=== PATIENT | male | born 1985 | race Hispanic/Latino ===

== ENCOUNTER 2023-12-05 20:27 | Emergency (ER) | payer BC, SELFPAY ==
[2023-12-05] VITALS (10 sets, daily range): BP systolic 146–168; BP diastolic 99–124; BMI 29.8
[2023-12-05 21:20] LABS: COVID-19 Antigen Negative (Negative)
[2023-12-05] MEDS: NORVASC 2.5 MG PO (22:00)
[2023-12-05 22:07] LABS: % Basophils 1.1 % (0-2); % Eosinophils 5.5 % (0-6); % Immature Granulocytes 1.3 % (0-0.5); % Monocytes 9.2 % (1.7-9.3); % Neutrophils 64.9 % (42.2-75.2); Absolute Basophils 0.1 10^3/uL (0-0.2); Absolute Eosinophils 0.6 10^3/uL (0-0.7); Absolute Immature Granulocytes 0.2 10^3/uL (0-0.05); Absolute Lymphocytes 2.1 10^3/uL (1.2-3.4); Absolute Monocytes 1.1 10^3/uL (0.1-0.6); Absolute Neutrophils 7.5 10^3/uL (1.4-6.5); Hematocrit 42.5 % (39.0-52.0); Hemoglobin 15.1 g/dL (13.0-18.0); Mean Corp Hgb Conc. 35.5 g/dL (33.0-37.0); Mean Corpuscular Hgb 28.7 pg (27.0-31.0); Mean Corpuscular Volume 80.8 fL (80.0-94.0); Mean Platelet Volume 10.8 fL (7.4-10.4); Nucleated Red Blood Cells % 0 % (-); Platelet Count 249 10^3/uL (130-400); Red Blood Cell Count 5.26 10^6/uL (4.70-6.10); Red Cell Dist. Width 12.5 % (11.5-14.5); White Blood Cell Count 11.5 10^3/uL (4.8-10.8)
[2023-12-05 22:34] LABS: ALT (SGPT) 38 U/L (0-50); AST (SGOT) 24 U/L (17-59); Albumin 4.8 g/dl (3.5-5.0); Alkaline Phosphatase 80 U/L (38-126); Blood Urea Nitrogen 19 mg/dl (9-20); Calcium 9.5 mg/dl (8.4-10.2); Carbon Dioxide 27 mmol/L (22-30); Chloride 100 mmol/L (98-107); Estimated Creatinine Clearance 121 ml/min; Glucose 95 mg/dl (70-99); Lipase 456 U/L (23-300); Sodium 139 mmol/L (135-145); Total Bilirubin 0.5 mg/dl (0.2-1.3); Total Protein 6.9 g/dl (6.3-8.2); eGFR > 60.00
[2023-12-05 22:47] LABS: NT-proBNP 53.1 pg/ml; Troponin I < 0.012 ng/ml
--- NOTE | 2023-12-06 00:07 | ED.GENMED ---
History of Present Illness
General
Chief Complaint: Cold/Flu/URI Symptoms
Source: patient
Exam Limitations: none
Time Seen by Provider: 12/05/23 20:33
Nursing documentation reviewed up to this point in time: agreed with
History of Present Illness
History of Present Illness:
38 Y/O M h/o htn
chronically not controlled
here with uri sxs - cough, dry mostly but sometimes productive, feels sob at times, nausea/vomiting x 5-6 today post tussive or spontaneous
chills
no cp, pleuritic pain, leg swelling, recent travel, abdominal pain, diarrhea
he has not tried OTC meds
has never had DVT PE
says his BP is always elevated but he doesn't tolerate a lot of meds because then BP drops
he doesn't know when he last took meds
Past History
Past History
ED Past Medical History: HTN, Psychiatric (Anxiety, panic disorder) and Other ( Chronic left chest pain)
ED Past Surgical History: Tonsilectomy
Patient has exhibited threatening behavior?: No
Social History
Tobacco: Non-smoker
Alcohol: None
Drug: None
Personal:
Living: with family
Employment: Employed
Family History
Family History: Other (Noncontributory)
Review of Systems
Review of Systems
Allergies reviewed?: Yes
All Other Systems: Not applicable
Phy Exam
Physical Exam
Physical Exam:
GENERAL: Alert , in no apparent distress, well appearing
EYE: pupils equal and reactive
NECK: Supple
ENT: o/p clr, mmm.
CARDIAC: Regular rate and rhythm .
LUNGS: Clear breath sounds bilaterally, no acute respiratory distress, no wheezes/rales/rhonchi
ABDOMEN: Soft, without focal tenderness, no r/g, no cvat, normal bowel sounds
NEUROLOGICAL: Alert and oriented, no focal neuro deficits
SKIN: Warm and dry, skin intact.
MUSCULOSKELETAL: No edema, well perfused. neg kanchan's sign
PSYCH: Normal and appropriate interaction.
Course
Orders/Labs/Results
Orders:
Orders
12/05/23 20:45
Electrocardiogram (*1) Urgent
Reason for Study: Shortness of Breath
EKG- Treatment ONCE
CR Chest - 2 Views Urgent
Comment:
Reason For Exam: cough
12/05/23 20:49
COVID-19 Antigen Urgent
Source: Nasal Swab
Influenza A+B Rapid Molecular Urgent
ANURAG Source: Nasal Swab
Specimen Description:
12/05/23 21:45
Amlodipine [Norvasc] 2.5 mg PO NOW STA
12/05/23 21:56
Complete Blood Count/With Diff Urgent
Comprehensive Metabolic Panel Urgent
Lipase Urgent
NT-proBNP Urgent
Troponin I Urgent
Abnormal Lab Results
12/05/23
21:56
WBC 11.5 H 10^3/uL
(4.8-10.8)
MPV 10.8 H fL
(7.4-10.4)
Abs Immat Gran (auto) 0.2 H 10^3/uL
(0-0.05)
Absolute Neuts (auto) 7.5 H 10^3/uL
(1.4-6.5)
Absolute Monos (auto) 1.1 H 10^3/uL
(0.1-0.6)
Immature Gran % 1.3 H %
(0-0.5)
Lymphocytes % 18.0 L %
(20.5-51.1)
Lipase 456 H U/L
(23-300)
12/05/23 21:56
12/05/23 21:56
Vital Signs
Initial and Last Documented VS:
Initial Vital Signs
Temp Pulse Resp BP Pulse Ox
99.0 F 95 18 168/99 97
12/05/23 20:29 12/05/23 20:29 12/05/23 20:29 12/05/23 20:29 12/05/23 20:29
Last Documented Vital Signs
Temp Pulse Resp BP Pulse Ox
99.0 F 86 16 146/110 97
12/05/23 20:29 12/05/23 23:54 12/05/23 23:54 12/05/23 23:58 12/05/23 23:54
MDM/Problems Addressed
Differential Diagnosis Includes:
uri, covid, flu, viral uri, pneumonia
less likely CHF, less likely PE
MDM/Problems Addressed:
38 y/o M
chronic anxiety, uncontrolled htn
here with uri sxs, nausea, vomiting for a few days and then also feels sob at times
he has no cp
no PE RF
chronically has elevated bp and is not on meds becuase he chooses not to be, hasn't tolerated them well
gets white coat sydnreom as well
PERC NEG
on exam normal pulse ox, not tachy, not tachypneic,
lungs clear
occ cough
sounds viral in nature
started with covid/flu/cxr/ekg
he does have chroinc t wave inv in III but unchanged
but then with bp elevated 150/120
i did w/u to eval cr/trop/bnp
all neg
his bp did come down slightly but on chart review, he has been chronially elevated this high
he agrees to start amlodpine 2.5 mg dialy
lipase 400; no alchol abuse, percy bdominal pain
reocmmend clears
return precautions
*Critical Care Note
Total Time (30-74mins, 75-104mins- exclusive of procedures): Not Applicable
ED Attending Note
-
Portions of this chart may have been created with voice recognition software.� Occasional wrong word or��sound alike� substitutions may have occurred due to the inherent limitations of voice recognition software.
Discharge Plan
Departure
Patient Disposition: Home (Routine Discharge)
Date of Disposition: 12/05/23
Time of Disposition: 23:42
Patient with high blood pressure during this ER visit?: No
Condition: Fair
Covid-19: Not Applicable
Discharge Problem:
Acute bronchitis, Hypertension complications
Instructions: Acute Bronchitis, Adult (DC), BLOOD PRESSURE
Prescriptions:
New
amlodipine 2.5 mg tablet
2.5 mg PO DAILY Qty: 30 0RF
Referrals:
Gamaliel Richmond MD [Family Provider] -
Activity Restrictions/Additional Instructions:
YOUR WORK UP HERE DOES NOT SHOW ANY SIGNS OF EMERGENCY
YOU HAVE HIGH BLOOD PRESSURE AND NEED TO START MEDICATION FOR NOW
AMLOIDPINE 2.5 MG DAILY
PLEASE BUY A CUFF AND RECHECK AT HOME
YOUR COUGH IS PROBABLY VIRAL
YOU TESTED NEGATIVE FOR FLUA ND COVID
THERE WAS NO SIGN OF HEART FAILURE
THERE WAS NO SIGN OF PNEUMONIA
PLEASE FOLLOW UP WITH YOUR DOCTOR THIS WEEK
YOU CAN TAKE OVER THE COUNTER CORICIDIN HBP FOR YOUR COLD SYPTOMS (THIS WILL NOT RAISE YOUR BLOOD PRESSURE)
DRINK FLUIDS, HAVE A CLEAR LIQUID DIET FOR 24 HOURS
YOUR PANCREAS ENZYME WS SLIGHTLY HIGH WHICH CAN BE BECAUSE OF THE VOMITING
RETURN FOR:WORSENING SHORTNESS OF BREATH, HIGH FEVER, CHEST PAIN, CONTINUED VOMITING, ABDOMNAL PAIN OR ANY CONCERNS.
Interventions
Interventions:
*Risk Screen - Suicide Last Done: 12/05/23 20:56
*General Assessment Last Done: 12/05/23 20:29
*Neglect/Abuse Screening Last Done: 12/05/23 20:56
*ED COVID-19 Vaccine History Last Done: 12/05/23 20:56
*Nursing Disposition Last Done: 12/06/23 00:08
ED- Pulmonary Assessment Last Done: 12/05/23 20:56
Discharge Date and Time
Discharge Date/Time: 12/06/23 00:08
Print Language: UKRAINIAN
== END 2023-12-06 00:08 | disposition home or self-care (01) ==
LOC: EMR 20:27
PROVIDERS: Physician Assistant; EMERGENCY PHYSICIAN Student in an Organized Health Care Education/Training Program; FAMILY PHYSICIAN Internal Medicine
DX: J20.9 Acute bronchitis, unspecified (principal); I10 Essential (primary) hypertension; R11.2 Nausea with vomiting, unspecified; Z11.52 Encounter for screening for COVID-19; F41.0 Panic disorder [episodic paroxysmal anxiety]; F41.9 Anxiety disorder, unspecified
CPT/HCPCS: 99283; 71046; 80053; 83690; 83880; 84484; 85025; 87502; 87811; 93005

== ENCOUNTER 2024-02-25 16:38 | Emergency (ER) | payer SELFPAY ==
[2024-02-25] VITALS (10 sets, daily range): BP systolic 147–185; BP diastolic 108–131; BMI 30.3
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
[2024-02-25] MEDS: TRANDATE 10 MG IV (20:36)
[2024-02-25 20:37] LABS: % Basophils 0.7 % (0-2); % Eosinophils 2.5 % (0-6); % Lymphocytes 32.8 % (20.5-51.1); % Monocytes 8.4 % (1.7-9.3); % Neutrophils 54.6 % (42.2-75.2); Absolute Basophils 0.1 10^3/uL (0-0.2); Absolute Eosinophils 0.2 10^3/uL (0-0.7); Absolute Immature Granulocytes 0.1 10^3/uL (0-0.05); Absolute Lymphocytes 3.1 10^3/uL (1.2-3.4); Absolute Monocytes 0.8 10^3/uL (0.1-0.6); Absolute Neutrophils 5.1 10^3/uL (1.4-6.5); Hematocrit 47.1 % (39.0-52.0); Hemoglobin 16.1 g/dL (13.0-18.0); Mean Corp Hgb Conc. 34.2 g/dL (33.0-37.0); Mean Corpuscular Volume 84.9 fL (80.0-94.0); Mean Platelet Volume 10.6 fL (7.4-10.4); Nucleated Red Blood Cells % 0 % (-); Platelet Count 290 10^3/uL (130-400); Red Blood Cell Count 5.55 10^6/uL (4.70-6.10); Red Cell Dist. Width 12.5 % (11.5-14.5); White Blood Cell Count 9.4 10^3/uL (4.8-10.8)
[2024-02-25 20:51] LABS: ALT (SGPT) 41 U/L (0-50); AST (SGOT) 28 U/L (17-59); Albumin 5.2 g/dl (3.5-5.0); Alkaline Phosphatase 78 U/L (38-126); Blood Urea Nitrogen 20 mg/dl (9-20); Carbon Dioxide 26 mmol/L (22-30); Chloride 100 mmol/L (98-107); Estimated Creatinine Clearance > 125 ml/min; Glucose 87 mg/dl (70-99); Sodium 138 mmol/L (135-145); Total Bilirubin 0.6 mg/dl (0.2-1.3); Total Protein 7.7 g/dl (6.3-8.2); eGFR > 60.00
[2024-02-25] MEDS: TRANDATE 100 MG PO (22:08)
== END 2024-02-25 22:58 | disposition home or self-care (01) ==
LOC: EMR 16:38
PROVIDERS: EMERGENCY PHYSICIAN Emergency Medicine; FAMILY PHYSICIAN Internal Medicine
DX: S16.1XXA Strain of muscle, fascia and tendon at neck level, initial encounter (principal); S69.91XA Unspecified injury of right wrist, hand and finger(s), initial encounter; V89.2XXA Person injured in unspecified motor-vehicle accident, traffic, initial encounter; I10 Essential (primary) hypertension
CPT/HCPCS: 99284; 96374; 29125; 73110; 80053; 85025